=== PATIENT | female | born 1975 | race Caucasian/White ===

== ENCOUNTER 2018-03-10 17:31 | Emergency (ER) | payer OTHER ==
[~2018-03-10] VITALS: Ht 160 cm; Wt 75.0 kg
[2018-03-10 17:49] VITALS: BP 142/98; PULSE 103; RESP 18; Ht 160 cm; Wt 75.0 kg
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
== END 2018-03-10 19:10 | disposition home or self-care (01) ==
LOC: FTE 17:31
DX: Z32.02 Encounter for pregnancy test, result negative (principal)
CPT/HCPCS: 81025; Z7502; 99282